=== PATIENT | male | born 1980 | race Caucasian/White ===

== ENCOUNTER 2016-12-03 16:00 | Emergency (ER) | payer OTHER ==
--- NOTE | ~2016-12-03 | CT16 ---
[facility] A Service of [facility] RADIOLOGY TEXT RESULTS PATIENT: MELISSA HERNANDES LOCATION: [facility] : 78 UNIT #: [id number] AGE: [address]: Kay Loza MD SEX: M ORDER DR: [id number] [facility] [address] [place], [place] [address] [id number] E MR#: [id number] Acc #: [id number] NAME: MELISSA HERNANDES : 1980 SEX: M STUDY DATE/TIME: 12/03/2016 17:54 UNIT: [facility] ROOM: STUDY DESCRIPTION: CT Angio Chest for PE Attending Physician: Kay Loza M.D. Ordering Physician: Kay Loza M.D. Primary Care Physician: No Primary Care Physician MEDICAL IMAGING REPORT This report is preliminary unless electronic signature is present EXAM CT scan of the chest with intravenous contrast 12/03/2016 HISTORY Chest pain and pressure for 3 days worsening today. Benign essential hypertension. Evaluate for pulmonary embolus. TECHNIQUE Spiral CT was performed through the chest following intravenous contrast administration using pulmonary embolus protocol. 3-D reconstructions of the chest were then performed following intravenous contrast administration. This CT exam was performed with one or more of the following radiation dose reduction techniques: automatic control, adjustment of mA and/or kV according to patient size, and iterative reconstruction. FINDINGS There is no CT evidence for pulmonary embolus. The heart is normal in size. There is no significant thoracic adenopathy. There are no pleural effusions. The lungs are clear. IMPRESSION No CT evidence for pulmonary embolus. Dictated by... Eleazar Ferguson M.D. THIS IS AN ELECTRONICALLY VERIFIED REPORT Eleazar Ferguson M.D. at 12/04/2016 3:06 PM [email or web address]/rnr TD: 12/04/2016 05:25 JOB #: [id number] [facility] A Service of [facility] RADIOLOGY TEXT RESULTS PATIENT: MELISSA HERNANDES LOCATION: [facility] : 78 UNIT #: [id number] AGE: [address]: Kay Loza MD SEX: M ORDER DR: MEDICAL IMAGING REPORT Page 1 of 1 COPY
--- NOTE | ~2016-12-03 | US140 ---
[facility] A Service of [facility] & [facility] RADIOLOGY TEXT RESULTS PATIENT: MELISSA HERNANDES LOCATION: [facility] : 78 UNIT #: [id number] AGE: [address]: Kay Loza MD SEX: M ORDER DR: [id number] [facility] [address] [place], [place] [address] [id number] E MR#: [id number] Acc #: [id number] NAME: MELISSA HERNANDES : 1980 SEX: M STUDY DATE/TIME: 12/03/2016 16:52 UNIT: [facility] ROOM: STUDY DESCRIPTION: [employer] Veins Unilat or Ltd Stdy Attending Physician: Kay Loza M.D. Ordering Physician: Kay Loza M.D. Primary Care Physician: No Primary Care Physician MEDICAL IMAGING REPORT This report is preliminary unless electronic signature is present EXAM Left upper extremity venous duplex 12/03/2016 HISTORY Left upper extremity pain and swelling for 2 days. History of previous deep vein thrombosis and pulmonary embolus. FINDINGS Yu-scale images of the left upper extremity were obtained as well as Doppler waveform spectral analysis and color flow Doppler imaging. There is normal blood flow and compressibility in the left internal jugular vein as well as left subclavian, axillary, brachial, cephalic and basilic veins. There is no evidence of deep vein thrombosis in the left upper extremity. IMPRESSION Negative left upper extremity venous duplex with no evidence of deep vein thrombosis. Dictated by... Eleazar Ferguson M.D. THIS IS AN ELECTRONICALLY VERIFIED REPORT Eleazar Ferguson M.D. at 12/04/2016 3:05 PM [email or web address]/[email or web address] TD: 12/04/2016 01:08 JOB #: [id number] MEDICAL IMAGING REPORT Page 1 of 1 COPY
--- NOTE | ~2016-12-03 | US85 ---
[facility] A Service of [facility] RADIOLOGY TEXT RESULTS PATIENT: MELISSA HERNANDES LOCATION: [facility] : 78 UNIT #: [id number] AGE: [address]: Kay Loza MD SEX: M ORDER DR: [id number] [facility] [address] [place], [place] [address] [id number] E MR#: [id number] Acc #: [id number] NAME: MELISSA HERNANDES : 1980 SEX: M STUDY DATE/TIME: 12/03/2016 17:03 UNIT: [facility] ROOM: STUDY DESCRIPTION: [employer] Unilat or Ltd Stdy Attending Physician: Kay Loza M.D. Ordering Physician: Kay Loza M.D. Primary Care Physician: No Primary Care Physician MEDICAL IMAGING REPORT This report is preliminary unless electronic signature is present EXAM Left lower extremity venous duplex 12/03/2016 HISTORY Left lower extremity pain and swelling for 2 days. History of previous deep vein thrombosis and pulmonary embolus. TECHNIQUE Venous ultrasound examination of the left lower extremity was performed using grayscale, spectral Doppler and color flow Doppler imaging. FINDINGS The examination is negative. There is no evidence of left lower extremity deep venous thrombus from the groin to the lower calf. Visualized greater saphenous vein is also patent. IMPRESSION Negative examination. No evidence of left lower extremity deep venous thrombosis. Dictated by... Eleazar Ferguson M.D. THIS IS AN ELECTRONICALLY VERIFIED REPORT Eleazar Ferguson M.D. at 12/04/2016 3:05 PM [email or web address]/[email or web address] TD: 12/04/2016 01:09 JOB #: [id number] MEDICAL IMAGING REPORT Page 1 of 1 COPY
--- NOTE | ~2016-12-03 | EKG ---
PATIENT: MELISSA HERNANDES UNIT #: [id number] Ventricular Rate: 84 BPM Atrial Rate: 84 BPM P-R Interval: 138 ms QRS Duration: 92 ms Q-T Interval: 370 ms QTC Calculation(Bezet): 437 ms P [place]: 58 degrees Calculated R [place]: 30 degrees Calculated T [place]: 44 degrees Diagnosis Line: Normal sinus rhythm Diagnosis Line: Normal ECG Diagnosis Line: No previous ECGs available Diagnosis Line: Confirmed by MARGIE ERICKSON MD ([id number]) on 12/05/2016 Diagnosis Line: 4:04:07 PM INTERPRETING MD: DRE MOMIN
[~2016-12-03 16:00] MED LIST: ACYCLOVIR; ACYCLOVIR PO; AUGMENTIN1 TAB.SR1 PO; CAPOZIDE PO; COUMADIN PO
[2016-12-03 16:07] LABS: POC - CKMB 1.4 ng/mL (0.0-7.9); POC - TROPONIN <0.05 ng/mL (<=0.05)
[2016-12-03 16:17] LABS: BASOPHIL% 0.4 % (0-2.5); EOSINOPHIL# 0.2 X10e3 (0-0.7); EOSINOPHIL% 3.1 % (0.0-7.0); HEMATOCRIT 43.3 % (38.0-50.0); HEMOGLOBIN 14.3 gm/dL (13.0-16.0); LYMPHOCYTE# 2.1 X10e3 (1.0-3.5); LYMPHOCYTE% 30.9 % (17.0-45.0); MEAN CELL VOLUME 89.8 FL (83-96); MEAN CORPUSCULAR HEMOGLOBIN 29.7 PG (28-34); MEAN CORPUSCULAR HGB CONC 33.1 g/dL (30-36); MEAN PLATELET VOLUME 8.9 FL (6.5-11.5); MONOCYTE# 0.6 X10e3 (0-1.0); MONOCYTE% 8.4 % (3.0-12.0); NEUTROPHIL# 3.9 X10e3 (1.5-7.1); NEUTROPHIL% 57.2 % (40-75); PLATELET COUNT 181 X10e3 (140-420); RED BLOOD COUNT 4.82 X10e (3.90-5.60); RED CELL DISTRIBUTION WIDTH 13.6 % (11.0-15.5); WHITE BLOOD COUNT 6.8 X10e3 (4.0-10.5)
[2016-12-03 16:19] LABS: DIFF IND NO
[2016-12-03 16:32] LABS: PARTIAL THROMBOPLASTIN TIME 27.2 SECONDS (23.5-31.3); PROTHROMBIN TIME (PATIENT) 10.7 SECONDS (9.6-11.5)
[2016-12-03 16:39] LABS: ALBUMIN SERUM 4.4 g/dL (3.5-5.0); ALKALINE PHOSPHATASE 71 U/L (32-92); ALT (SGPT) 23 U/L (10-40); AST (SGOT) 22 U/L (10-42); BILIRUBIN,TOTAL 0.6 mg/dL (0.2-2.0); BLOOD UREA NITROGEN 17 mg/dL (9-23); CALCIUM SERUM 9.1 mg/dL (8.4-10.2); CARBON DIOXIDE 28 mmol/L (22-31); CHLORIDE 104 mmol/L (100-111); GLOM FILT RATE Estimated 95.7 mL/min (>60); GLUCOSE FASTING 104 mg/dL (70-110); POTASSIUM 3.7 mmol/L (3.5-5.1); PROTEIN TOTAL SERUM 7.3 g/dL (6.0-8.3); SODIUM 138 mmol/L (135-145)
[2016-12-03 16:40] LABS: ALCOHOL BLOOD <5 mg/dL (0); BILIRUBIN, DIRECT <0.1 mg/dL (0.0-0.2); BILIRUBIN,INDIRECT 0.5 mg/dL (0.0-0.9)
[2016-12-03 17:58] LABS: POC - CKMB 1.9 ng/mL (0.0-7.9); POC - TROPONIN <0.05 ng/mL (<=0.05)
[2017-04-21] MEDS ORDERED: NO MEDICATIONS (22:52)
[2017-04-22] MEDS ORDERED: XARELTO15 MG PO (02:17)
[2017-04-22] MEDS ORDERED: IBUPROFEN600 MG PO (02:17)
== END 2016-12-03 19:06 | disposition home or self-care (01) ==
LOC: CED 16:00
PROVIDERS: Student in an Organized Health Care Education/Training Program
DX: R07.89 Other chest pain (principal); R20.9 Unspecified disturbances of skin sensation; I10 Essential (primary) hypertension; F17.200 Nicotine dependence, unspecified, uncomplicated; Z79.899 Other long term (current) drug therapy
CPT/HCPCS: 71275; 80048; 80076; 82553; 83735; 83880; 84484; 85025; 85610; 85730; 93005; 93971; 96360; 99284; G0480; Q9967

== ENCOUNTER 2017-04-04 16:28 | Emergency (ER) | payer OTHER ==
[~2017-04-04] VITALS: Ht 190.5 cm; Wt 110.2 kg
[2017-04-21] MEDS ORDERED: NO MEDICATIONS (22:52)
[2017-04-22] MEDS ORDERED: IBUPROFEN600 MG PO (02:17)
[2017-04-22] MEDS ORDERED: XARELTO15 MG PO (02:17)
== END 2017-04-04 17:10 | disposition home or self-care (01) ==
LOC: CFTX 16:28 → CED 16:28 → CFTX 17:01
DX: L20.9 Atopic dermatitis, unspecified (principal); B88.0 Other acariasis; I10 Essential (primary) hypertension; D68.9 Coagulation defect, unspecified; Z90.49 Acquired absence of other specified parts of digestive tract; F17.210 Nicotine dependence, cigarettes, uncomplicated
CPT/HCPCS: 99282